=== PATIENT | female | born 1945 | race Caucasian/White ===

== ENCOUNTER 2017-12-27 11:40 | Inpatient (IN) ==
[2017-12-27] MEDS ORDERED: Glycopyrrolate Inj 1 MG/5 ML Syringe IV.PUSH ONE (12:00)
[2017-12-27] MEDS ORDERED: Lidocaine PF 1% Inj 5 ML Syringe INFILTRATN ONE (12:00)
[2017-12-27] MEDS ORDERED: Ketorolac Inj 30 MG/ML (IVP) Vial IV.PUSH ONE (12:00)
[2017-12-27] MEDS ORDERED: Phenylephrine/NS 1000 MCG/10ML Syringe IV.PUSH ONE (12:00)
[2017-12-27] MEDS ORDERED: Neostigmine Inj 5 MG/5 ML Syringe IV.PUSH ONE (12:00)
[2017-12-27] MEDS ORDERED: Chlorhexidine Gluconate 2% 1 Pack (2 Cloths) TOPICAL SCH (13:30)
[2017-12-27] MEDS ORDERED: Metoprolol Tartrate 25 MG Tablet PO SCH (13:30)
[2017-12-27 13:33] LABS: Baso # (Auto) 0.1 th/mm3 (0.0-0.2); Eos # (Auto) 0.2 th/mm3 (0.0-0.4); Eos % (Auto) 2.8 % (0.0-4.0); Hematocrit 41.3 % (35.0-46.0); Hemoglobin 13.1 gm/dL (11.6-15.3); Lymph # (Auto) 0.8 th/mm3 (1.0-4.8); Lymph % (Auto) 14.4 % (9.0-44.0); Mean Corpuscular HGB Conc 31.8 % (32.0-36.0); Mean Corpuscular Hemoglobin 25.2 pg (27.0-34.0); Mean Corpuscular Volume 79.2 fL (80.0-100.0); Mean Platelet Volume 7.8 fL (7.0-11.0); Mono # (Auto) 0.5 th/mm3 (0.0-0.9); Mono % (Auto) 9.6 % (0.0-8.0); Neut # (Auto) 3.8 th/mm3 (1.8-7.7); Neut % (Auto) 72.2 % (16.0-70.0); Platelet Count 316 th/mm3 (150-450); Red Blood Count 5.21 mil/mm3 (4.00-5.30); Red Cell Distribution Width 27.8 % (11.6-17.2); White Blood Count 5.3 th/mm3 (4.0-11.0)
[2017-12-27 13:34] LABS: Bilirubin,Urine Negative (Negative); Clarity,Urine Clear (Clear); Color,Urine Yellow (Yellw/Straw); Glucose,Urine (UA) Negative (Negative); Leukocyte Esterase,Urine Trace (Negative); Nitrite,Urine Negative (Negative); Specific Gravity,Urine 1.008 (1.002-1.035)
[2017-12-27 13:49] LABS: Activated Partial Thrombo Time 28.6 sec (24.3-30.1); INR 1.3 Ratio; Prothrombin Time 13.5 sec (9.8-11.6)
--- NOTE | 2017-12-27 13:55 | P.HPUP ---
The Pre-Admit History and Physical Examination regarding the above named patient was reviewed (including, but not limited to, vital signs, heart, lungs, co-morbid conditions), and upon re-examination it is noted that: the patient's condition has not significantly changed since the last examination.
[2017-12-27] MEDS ORDERED: Sodium Chlor 0.9% Inj 500 ML IV.SIG SCH (14:00)
[2017-12-27 14:08] LABS: Eosinophils 2 % (0-4); Lymphocytes 14 % (9-44); Monocytes 10 % (0-8); Myelocytes 1 % (0-0)
[2017-12-27 14:09] LABS: Platelet Estimate Normal (Normal); Platelet Morphology Normal (Normal)
[2017-12-27 14:10] LABS: Dimorphic RBC Present
[2017-12-27 14:15] LABS: Alanine Aminotransferase 35 U/L (10-53); Alkaline Phosphatase 73 U/L (45-117); Total Protein 7.6 g/dL (6.4-8.2)
[2017-12-27 14:21] LABS: Albumin 3.9 g/dL (3.4-5.0); Anion Gap 8 meq/L (5-15); Aspartate Aminotransferase 63 U/L (15-37); Blood Urea Nitrogen 6 mg/dL (7-18); Calcium 9.2 mg/dL (8.5-10.1); Carbon Dioxide 22.7 meq/L (21.0-32.0); Chloride 107 meq/L (98-107); Glomerular Filtration Rate Greater Than 89 mL/min (>89); Glucose,Random 96 mg/dL (74-106); Sodium 138 meq/L (136-145)
[2017-12-27 14:22] LABS: Potassium 5.1 meq/L (3.5-5.1)
--- NOTE | 2017-12-27 15:53 | ECG ---
Date Performed: 12/27/2017 Time Performed: 12:19:25 PTAGE: 72 years EKG: SINUS TACHYCARDIA WITH OCCASIONAL VENTRICULAR PREMATURE COMPLEXES POSSIBLE LEFT ATRIAL ENLA RGEMENT SMALL INFEROLATERAL Q WAVES ABNORMAL RHYTHM ECG PREVIOUS TRACING : 04/16/2003 12.31 Since the previous tracing, no significant change noted DOCTOR: David Cuellar Interpretating Date/Time 12/27/2017 15:51:21
[2017-12-27] MEDS ORDERED: Sugammadex Inj 200 MG/2 ML Vial IV.PUSH ONE (18:09)
[2017-12-27] MEDS ORDERED: HYDROmorphone PF Inj 2 MG/ML Vial ONE (18:09)
[2017-12-27] MEDS ORDERED: Ketorolac Inj 30 MG/ML (IVP) Vial IV.PUSH PRN (20:02)
[2017-12-27] MEDS ORDERED: Potassium Chlor 40 mEq Premix 40 MEQ/100 ML PIGGYBACK IV.SIG PRN (20:02)
[2017-12-27] MEDS ORDERED: Potassium Chlor 20 mEq Premix 20 MEQ/100 ML PIGGYBACK IV.SIG PRN (20:02)
[2017-12-27] MEDS ORDERED: Acetaminophen 325 MG Tablet PO PRN (20:02)
[2017-12-27] MEDS ORDERED: KCL 20 mEq/D5W/NaCl 0.9% Inj 1,000 ML ONE (20:28)
[2017-12-27] MEDS ORDERED: *Meperidine Inj 25 MG/ML Vial PERIprocedural Use ONLY ONE (20:33)
[2017-12-27] MEDS: KCL 20 mEq/D5W/NaCl 0.9% Inj 1,000 ML IV.CONT SCH (21:00)
[2017-12-27] MEDS ORDERED: IRBESARTAN 150 MG PO SCH (21:00)
[2017-12-27] MEDS ORDERED: fentaNYL Citrate Inj 100 MCG/2 ML Ampul ONE (21:00)
[2017-12-27] MEDS: Dextrose 5%/NaCl 0.9% Inj 1,000 ML IV.SIG SCH ×2 (22:04→22:19)
[2017-12-27] MEDS ORDERED: Labetalol HCl Inj 100 MG/20 ML Vial ONE (22:13)
[2017-12-28] MEDS: KCL 20 mEq/D5W/NaCl 0.9% Inj 1,000 ML IV.CONT SCH ×3 (02:16→17:48)
[2017-12-28 04:48] LABS: Baso % (Auto) 0.2 % (0.0-2.0); Hematocrit 39.4 % (35.0-46.0); Hemoglobin 12.4 gm/dL (11.6-15.3); Lymph # (Auto) 0.3 th/mm3 (1.0-4.8); Lymph % (Auto) 3.2 % (9.0-44.0); Mean Corpuscular HGB Conc 31.5 % (32.0-36.0); Mean Corpuscular Hemoglobin 25.4 pg (27.0-34.0); Mean Corpuscular Volume 80.7 fL (80.0-100.0); Mean Platelet Volume 7.6 fL (7.0-11.0); Mono # (Auto) 0.4 th/mm3 (0.0-0.9); Neut # (Auto) 7.7 th/mm3 (1.8-7.7); Neut % (Auto) 91.6 % (16.0-70.0); Platelet Count 338 th/mm3 (150-450); Red Blood Count 4.88 mil/mm3 (4.00-5.30); Red Cell Distribution Width 27.9 % (11.6-17.2); White Blood Count 8.4 th/mm3 (4.0-11.0)
[2017-12-28 05:14] LABS: Carbon Dioxide 22.5 meq/L (21.0-32.0); Potassium 4.6 meq/L (3.5-5.1)
[2017-12-28] MEDS: Dextrose 5%/NaCl 0.9% Inj 1,000 ML IV.SIG SCH ×3 (06:23→22:03)
[2017-12-28] MEDS ORDERED: Morphine Inj 30 MG/30 ML PCA.VIAL PCA PRN (07:29)
[2017-12-28] MEDS ORDERED: Naloxone Inj 0.4 MG/ML Vial IV.PUSH PRN (07:29)
[2017-12-28 08:03] LABS: Lymphocytes 3 % (9-44); Monocytes 5 % (0-8); Platelet Estimate Normal (Normal)
[2017-12-28 08:04] LABS: Dimorphic RBC Present; Platelet Morphology Normal (Normal)
[2017-12-28] MEDS: Pantoprazole Inj 40 MG Vial IV.PUSH SCH (09:16)
--- NOTE | 2017-12-28 12:33 | MP ---
cc: Keith Manley MD DATE OF OPERATION: 12/27/2017 DATE OF PROCEDURE: 12/27/2017. PREOPERATIVE DIAGNOSIS: Cancer of the hepatic flexure. PROCEDURE PERFORMED: Exploratory laparotomy with right hemicolectomy. POSTOPERATIVE DIAGNOSIS: Cancer of the hepatic flexure. SURGEON: Keith Manley MD EGG PRODUCER: Josesito Espinoza MD DESCRIPTION OF PROCEDURE: The patient was placed in the supine position. After adequate general anesthesia, her abdomen was prepped with Betadine solution and draped in the usual sterile fashion. With Dr. Espinoza's assistance the abdomen was opened through a supraumbilical transverse incision, dividing the rectus muscles with electrocautery. Exploration revealed a fairly large bulky cancer in the proximal hepatic flexure or ascending colon. There was some serosal puckering but the tumor was not adherent to any surrounding structures. The remainder of the colon was palpated and except for diverticular disease, felt to be pretty unremarkable. The small bowel was run from ligament of Treitz down to ileocecal valve and felt to be normal. Liver and gallbladder were unremarkable. The stomach and duodenum were normal. Great vessels were of normal caliber and fairly soft. First, the right colon was mobilized medially by dividing along the white line of Toldt. The right ureter was identified and carefully preserved. Dissection then proceeded up the right gutter, taking the right colon off the retroperitoneum, taking down the hepatic flexure, entering the lesser sac and mobilizing the gastrocolic omentum off the transverse colon. The bowel was then divided in the mid transverse colon and the terminal ileum with FREEMAN stapling devices. The intervening mesentery taken between Jess's, obtaining hemostasis with Vicryl ties. Bowel continuity was then restored by firing of the GI stapler across the antimesenteric ends of the bowel, closing the enterotomy with a TA 60 stapler. The mesenteric defect closed with a running Vicryl suture and a 3-0 Vicryl crotch suture was placed as well. Abdomen was irrigated copiously with normal saline. Adequate hemostasis achieved. Transverse incision was closed anatomically in 2 layers using #1 PDS sutures to reapproximate the respective fascial layers. The subcutaneous tissues were irrigated copiously and the skin closed with a running subcuticular Vicryl suture. Wound area washed with normal saline and dried, sterile dressing of Telfa and gauze applied. The patient tolerated the procedure quite well and was brought to the recovery room in stable condition. The sponge and needle counts were correct at the end of the procedure. MD REINA Ponce/MARSHA , 12:18 PM , 12:25 PM
--- NOTE | 2017-12-28 23:32 | P.PNCS ---
Subjective Colorectal Surgery Post Op Day #: 1 Interval history: afebrile, VSS UO good Objective Result Diagrams: 12/28/17 04:26 12/28/17 04:26 Objective Remarks: PE alert Abd - soft, wound eccyhmotic, slight oozing min tympany Assessment and Plan - Plan Imp: stable post-op OOB Abd binder decr IVF watch wound
[2017-12-29] MEDS: Dextrose 5%/NaCl 0.9% Inj 1,000 ML IV.SIG SCH (06:37)
[2017-12-29] MEDS: KCL 20 mEq/D5W/NaCl 0.9% Inj 1,000 ML IV.CONT SCH ×2 (06:43→16:53)
[2017-12-29 06:44] LABS: Baso # (Auto) 0.1 th/mm3 (0.0-0.2); Baso % (Auto) 0.8 % (0.0-2.0); Eos # (Auto) 0.2 th/mm3 (0.0-0.4); Eos % (Auto) 2.1 % (0.0-4.0); Hematocrit 31.3 % (35.0-46.0); Hemoglobin 9.8 gm/dL (11.6-15.3); Lymph # (Auto) 1.1 th/mm3 (1.0-4.8); Lymph % (Auto) 14.7 % (9.0-44.0); Mean Corpuscular HGB Conc 31.5 % (32.0-36.0); Mean Corpuscular Hemoglobin 25.5 pg (27.0-34.0); Mean Corpuscular Volume 81.2 fL (80.0-100.0); Mean Platelet Volume 7.8 fL (7.0-11.0); Mono # (Auto) 0.9 th/mm3 (0.0-0.9); Mono % (Auto) 11.7 % (0.0-8.0); Neut # (Auto) 5.3 th/mm3 (1.8-7.7); Neut % (Auto) 70.7 % (16.0-70.0); Platelet Count 278 th/mm3 (150-450); Red Blood Count 3.86 mil/mm3 (4.00-5.30); White Blood Count 7.5 th/mm3 (4.0-11.0)
[2017-12-29 07:10] LABS: Anion Gap 5 meq/L (5-15); Blood Urea Nitrogen 9 mg/dL (7-18); Calcium 8.9 mg/dL (8.5-10.1); Carbon Dioxide 26.1 meq/L (21.0-32.0); Chloride 112 meq/L (98-107); Glomerular Filtration Rate Greater Than 89 mL/min (>89); Glucose,Random 135 mg/dL (74-106); Potassium 4.7 meq/L (3.5-5.1); Sodium 143 meq/L (136-145)
[2017-12-29 08:19] LABS: Ovalocytes 1+
[2017-12-29] MEDS: Pantoprazole Inj 40 MG Vial IV.PUSH SCH (08:57)
--- NOTE | 2017-12-29 21:01 | P.PNCS ---
Subjective Colorectal Surgery Post Op Day #: 2 Interval history: afebrile, VSS UO good elvira PO Objective Result Diagrams: 12/29/17 06:03 12/29/17 06:03 Objective Remarks: PE alert Abd - soft, wound eccyhmotic, dry min tympany, +BM Assessment and Plan - Plan Imp: OOB Abd binder decr IVF watch wound - stable path - +node
[2017-12-30] MEDS: KCL 20 mEq/D5W/NaCl 0.9% Inj 1,000 ML IV.CONT SCH (06:04)
[2017-12-30] MEDS: Pantoprazole Inj 40 MG Vial IV.PUSH SCH (08:33)
--- NOTE | 2017-12-30 10:32 | P.PNCS ---
Subjective Colorectal Surgery Post Op Day #: 3 Interval history: afebrile, VSS UO good elvira PO +BM Objective Result Diagrams: 12/29/17 06:03 12/29/17 06:03 Objective Remarks: PE alert Abd - soft, wound eccyhmotic, dry - hematoma stable min tympany, +BM Assessment and Plan - Plan Imp: OOB Abd binder watch wound - stable path - +node DC home, rto 1 week outpt oncology
--- NOTE | 2018-02-06 06:55 | MD ---
cc: Keith Manley MD,Dwaine Dunn, DATE OF DISCHARGE: 12/30/2017 ADMITTING DIAGNOSIS: Cancer of the hepatic flexure. PROCEDURES: On 12/27/2017, exploratory laparotomy with right hemicolectomy. DISCHARGE DIAGNOSES: Carcinoma of the hepatic flexure, T3 N1 M0. HISTORY OF PRESENT ILLNESS: Ms. Loza is a 72-year-old female who presented recently with anemia. Outpatient colonoscopy confirmed an ulcerated cancer of the hepatic flexure. She otherwise moves about fairly well without laxatives and enemas. Denies any real abdominal pain. No nausea or vomiting. Denies any diarrhea or melena. Appetite has been good and her weight has been fairly stable. Metastatic workup has been unremarkable. The patient was admitted at this time for definitive surgical resection. Please see her history and physical for complete past medical and surgical history. PERTINENT PHYSICAL: GENERAL: Very pleasant well-developed female in no acute distress. HEENT: Remarkable for pale, but dry membranes. Nonicteric sclerae. NECK: Supple without gross adenopathy. CHEST: Relatively diminished in the bases, clear anteriorly. HEART: Had a regular rhythm. ABDOMEN: Soft and benign. No distention. No rebound or guarding. No masses. EXTREMITIES: Show no cyanosis or clubbing and 1+ pedal edema. HOSPITAL COURSE: After admission, the patient was taken to the operating room on 12/27/2017, at which point she underwent an exploratory laparotomy with right hemicolectomy. She was found to have a rather large bulky cancer of the proximal hepatic flexure or ascending colon. There was serosal puckering but the tumor was not adherent to any surrounding structures. The liver and gallbladder were pretty unremarkable. The patient tolerated the procedure quite well. Initially, she was stabilized in the progressive care unit. Her GI tract function returned quite promptly and her diet was advanced accordingly. She continued to ambulate with minimal assistance. IV fluids were tapered and she was able to be switched to oral pain medicine. The patient was eating well and ambulating with minimal difficulty. Considered for discharge home on 12/30/2017. 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 Metastatic carcinoma was found in 1 of 12 pericolonic lymph nodes. There was tumor invading through the muscularis propria into the pericolonic soft tissue. Final stage was T3 N1 M0. DISCHARGE INSTRUCTIONS: The patient was discharged eating a regular diet. She was encouraged to ambulate daily and avoid any heavy lifting or straining. All preop medications were to be resumed. The patient will be seen in the office in 1 week's time for routine followup. Any problems prior to the scheduled office visit, patient was encouraged to call for more urgent attention. The patient will be referred or recommended to have adjuvant chemotherapy through an oncologist of her choosing after discussion in the outpatient setting. Keith Manley MD AHR/rs , 10:59 PM , 11:10 PM
== END 2017-12-30 10:38 | disposition home or self-care (01) ==
LOC: HSDI 11:40 → HCPC 12:58 → HCIN 12-28 15:09
PROVIDERS: ADMIT Colon & Rectal Surgery; ATTEND Colon & Rectal Surgery